=== PATIENT | female | born 1990 | race Caucasian/White ===

== ENCOUNTER 2016-08-17 23:57 | Inpatient (IN) | payer OTHER ==
--- NOTE | ~2016-08-17 | HP ---
Unit #: [id number] #: [id number] Patient: MELODY KEBEDE [id number] [facility] [address] [place] [address] [id number] I MR#: [id number] NAME: MELODY KEBEDE ROOM: P212 Age: 26 Sex: F Admission Date: 08/17/2016 : 1990 Attending Physician: Rona Jasso M.D. Admitting Physician: Rona Jasso M.D. Primary Care Physician: Primary Care Physician No HISTORY AND PHYSICAL HISTORY OF PRESENT ILLNESS Melody is a 26 year old admitted to [address] [place] [address] because of her continued drug use. PAST MEDICAL HISTORY 1. Long history of opioid abuse to include IV heroin. 2. Hepatitis C. 3. Seizure disorder. 4. History of benign brain cyst/tumor. PAST SURGICAL HISTORY Nothing reported. ALLERGIES No known drug allergies. SOCIAL HISTORY Smokes 1 pack per day. Denies alcohol. Admits to a long history of illicit substance abuse to include IV heroin. FAMILY HISTORY Medically noncontributory. REVIEW OF SYSTEMS CONSTITUTIONAL: No fever or chills. HEENT: Denies any sore throat, ear pain or runny nose. CARDIOVASCULAR: Denies chest pain, irregular heart rhythm or palpitations. CHEST: Denies shortness of breath or cough. No hemoptysis. GASTROINTESTINAL: Denies nausea, vomiting, diarrhea or chronic constipation. ENDOCRINE: Denies history of increased thirst or urination. No recent significant weight loss or gain. GENITOURINARY: Denies dysuria, frequency, or hematuria. SKIN: Denies any rashes. HEMATOLOGIC: Denies history of increased bleeding or bruising. MUSCULOSKELETAL: Denies any hot, swollen joints. No generalized muscle pain. NEUROLOGIC: Denies problems with vision or speech. No frequent, severe headaches. No numbness, tingling or weakness in any extremities. Denies loss of bladder or bowel control. CURRENT MEDICATIONS 1. Detox protocol. Unit #: [id number] #: [id number] Patient: MELODY KEBEDE 2. Keppra 500 mg b.i.d. PHYSICAL EXAMINATION GENERAL: Alert, well-nourished, in no apparent distress. VITAL SIGNS: Blood pressure 122/78, heart rate 80, respirations 16, temperature 98.6. WEIGHT: 115. HEIGHT: 5 feet 1 inch. SKIN: Warm and dry without rash or lesion. HEENT: Normocephalic. TMs not viewed. Oral and nasal passages clear. Conjunctivae clear. PERRLA. EOMs intact. NECK: Supple without lymphadenopathy or thyromegaly. HEART: Regular rate and rhythm without murmur. LUNGS: Clear. ABDOMEN: Soft, nontender. : Not done. EXTREMITIES: No evidence of cyanosis, clubbing or edema. Moves all without focal deficit. NEUROLOGICAL: Grossly within normal limits. Cranial Nerves: II: Visual baca are intact. III, IV AND : Extraocular movements are intact. Pupils are equal, round and reactive to light. V: Facial sensation is grossly normal. VII: Facial movements and expression are normal. VIII: Auditory acuity grossly intact. IX, X: Uvula is midline. Phonation is normal. XI: Patient shrugs shoulders and turns head normally. XII: Tongue protrudes in the midline. Sensory and Motor Function: Sensory and motor sensation is grossly normal. Motor: moves all extremities well. Coordination: Gait is normal. Deep Tendon Reflexes: Intact. IMPRESSION Psychiatric admission. RECOMMENDATIONS PSYCHIATRIC: Per psychiatrist. MEDICAL: See no contraindications to participate in facility's activities. MEDICAL PROGNOSIS Good. MEDICAL CONDITION Stable. Dictated by... Charline Aaron PJulietteAJuliette-Jocelin. for Ami Dwyer/tien TD: 08/18/2016 20:44 JOB #: [id number] Unit #: [id number] #: [id number] Patient: MELODY KEBEDE HISTORY AND PHYSICAL Page 1 of 1 X Charline Aaron HISTORY AND PHYSICAL
--- NOTE | ~2016-08-17 | PN ---
Unit #: [id number] #: [id number] Patient: MELODY COLUNGA [id number] [facility] [address] [place] [address] [id number] MR#: [id number] NAME: MELODY COLUNGA ROOM: P212 Age: 26 Sex: F Admission Date: 08/17/2016 : 1990 Attending Physician: Rona Jasso M.D. Admitting Physician: Rona Jasso M.D. Primary Care Physician: Primary Care Physician Yadira AMBRIZ NOTES DATE August 19, 2016 DISCUSSION Ms. Colunga is a 26-year-old white female, with substance abuse and mood disorder, who was seen today and chart was reviewed and the case was discussed with the staff. She was trying to mask her substance abuse issues and rather focus more on her underlying anxiety; however, she has been taking the medications and tolerating them fairly well with no reported side effects. MENTAL STATUS EXAMINATION Young white female, who was casually dressed with fair personal hygiene and appears to be in no acute distress or discomfort. She was awake and alert on interaction with intact orientation. Her mood was anxious and depressed with a congruent affect. Her speech is slow and goal-directed. The patient denies any suicidal or homicidal ideations. Her insight and judgment remain slightly impaired. TREATMENT PLAN 1. We will continue her on her current medications and treatment protocol, and will monitor her response to the medications, and make further adjustments as needed. 2. We will continue to followup. Dictated by... Ami Bauer/aba TD: 08/22/2016 12:09 JOB #: [id number] Unit #: [id number] #: [id number] Patient: MELODY COLUNGA PEARADHA PROGRESS NOTES Page 1 of 1 X Rona Jasso MD PROGRESS NOTE
--- NOTE | ~2016-08-17 | DS ---
Unit #: [id number] #: [id number] [facility]: [facility] [id number] [facility] [address] [place] [address] [id number] I MR#: [id number] NAME: MELODY COLUNGA ROOM: [facility] Age: 26 Sex: F Admission Date: 08/17/2016 : 1990 Discharge Date: 08/20/2016 Attending Physician: Rona Jasso M.D. Primary Care Physician: Primary Care Physician No DISCHARGE SUMMARY IDENTIFYING DATA Ms. Colunga is a 26-year-old white female, who was self-referred to the hospital. DISCHARGE DIAGNOSES Psychiatric: Opioid dependence, moderate and acute withdrawals; opioid-induced mood disorder. Medical: Hypertension and hepatitis C. Stressors: Moderate psychosocial stressors. HISTORY OF PRESENT ILLNESS Please see initial psychiatric evaluation for details. PAST PSYCHIATRIC HISTORY Please see initial psychiatric evaluation for details. PAST MEDICAL HISTORY Please see initial psychiatric evaluation for details. HOSPITAL COURSE The [facility] and was oriented to hospital environment. Routine p.r.n. medications were initiated. She was started back on her home medications and detox protocol was initiated and she was closely monitored. She was taking medications regularly and was tolerating them fairly well and was able to show a fairly decent and therapeutic response and was able to come out of the detox without any complications and was willing to continue treatment on an outpatient basis and as such, it was decided that she will be discharged home and will continue treatment on an outpatient basis. DISCHARGE CONDITION Stable. PROGNOSIS Fair. Dictated by... Rona Jasso M.D. IAA/modl Unit #: [id number] #: [id number] Patient: MELODY COLUNGA TD: 10/04/2016 01:07 JOB #: [id number] DISCHARGE SUMMARY Page 1 of 1 X Rona Jasso MD X DISCHARGE SUMMARY
--- NOTE | ~2016-08-17 | PA ---
Unit #: [id number] #: [id number] Patient: MELODY COLUNGA [id number] [facility] [address] [place] [address] [id number] MR#: [id number] NAME: MELODY COLUNGA ROOM: P211 Age: 26 Sex: F Admission Date: 08/17/2016 : 1990 Date of Assessment: 08/17/2016 Attending Physician: Rona Jasso M.D. Admitting Physician: Rona Jasso M.D. Primary Care Physician: Primary Care Physician No PSYCHIATRIC ASSESSMENT IDENTIFYING DATA Ms. Colunga is a 26-year-old single white female, who is a resident of [place], [place] and was self-referred to the hospital on a voluntary basis. CHIEF COMPLAINT "I'm an IV heroin user." HISTORY OF PRESENT ILLNESS Ms. Colunga is a 26-year-old white female, who was self-referred to the hospital. Upon presentation, she stated she has been using between 0.25 to 0.5 gram of IV heroin on daily basis and also uses this nasally and her last use was 3 days ago and reports increasing depression, anxiety, disturbed sleep, psychomotor retardation, and she reports that she has not been eating and has not been sleeping and has been having feelings of hopelessness and helplessness, but denies any suicidal ideations, intent, or plan. SUBSTANCE ABUSE HISTORY The patient reports history of experimentation and abuse of alcohol, cannabis, opioids, and benzodiazepines, and currently heroin has been her drug of choice, though she reports that she has been using IV heroin on daily basis. PAST PSYCHIATRIC HISTORY The patient has not had any prior inpatient or outpatient psychiatric or chemical dependency treatment. Review of the medical records indicate currently she is not seeing a psychiatrist, and is not taking any psychotropic medications. PAST MEDICAL HISTORY Significant for cyst on the brain, hepatitis C, seizure disorder. ALLERGIES No known medication allergies. PERSONAL AND SOCIAL HISTORY A 26-year-old white female, who reports that she lives at home with her boyfriend and her daughter and has fairly decent social support system. MENTAL STATUS EXAMINATION Young white female, who was casually dressed with fair personal hygiene, appears to be in no acute distress or discomfort. She was awake and alert Unit #: [id number] #: [id number] Patient: MELODY COLUNGA on interaction with intact orientation to time, place, and person. Her mood was anxious and depressed with a congruent affect. Her speech was slow and goal directed. Her thought processes were disorganized with some looseness of associations. She denies any suicidal or homicidal ideations, and also denies any auditory or visual hallucinations. Her insight and judgment remain significantly impaired. DIAGNOSTIC IMPRESSION Psychiatric: Opioid dependence, moderate and acute withdrawals; opioid-induced mood disorder. Medical: Cyst on the brain, hepatitis C, seizure disorder. Stressors: Moderate psychosocial stressors. TREATMENT PLAN 1. The patient has presented with a history of substance abuse and mood disorder, and has been decompensating and will need inpatient hospitalization for detoxification, safety, and stabilization. We will start her on detox protocol. We will closely monitor for any worsening withdrawal symptoms. 2. Supportive therapy was provided to the patient. 3. Safe, structured, and nourishing environment will be reported. ESTIMATED LENGTH OF STAY 4 to 5 days. ABILITY TO HELP SELF Limited. WILLINGNESS TO HELP SELF The patient appears to be willing to help self. STRENGTHS 1. Communicative. 2. Cooperative. PROBLEMS 1. Chronic dysphoric symptoms. 2. Poor social support system. DISCHARGE CRITERIA This will be contingent upon the patient's ability to go through detox without having any significant withdrawal symptoms and her ability to stay safe to herself, particularly after discharge from the hospital. Dictated by... Ami Bauer/alexus TD: 08/18/2016 07:09 JOB #: [id number] Unit #: [id number] #: [id number] Patient: MELODY COLUNGA PSYCHIATRIC ASSESSMENT Page 1 of 1 X Rona Jasso MD PSYCHIATRIC ASSESSMENT
--- NOTE | ~2016-08-17 | PN ---
Unit #: [id number] #: [id number] Patient: MELODY COLUNGA [id number] [facility] [address] [place] [address] [id number] MR#: [id number] NAME: MELODY COLUNGA ROOM: P211 Age: 26 Sex: F Admission Date: 08/17/2016 : 1990 Attending Physician: Rona Jasso M.D. Admitting Physician: Ami Bauer PROGRESS NOTES DATE OF SERVICE: 08/18/2016 SUBJECTIVE Ms. Colunga is a 26-year-old white female with substance abuse and mood disorder, who was seen today and chart was reviewed and the case was discussed with the staff. She has been anxious, withdrawn, depressed, and rather seclusive to herself. Meanwhile, she has been cooperative with the treatment recommendations and has been taking the medications and tolerating them fairly well with no reported side effects. MENTAL STATUS EXAMINATION Young white female, who was casually dressed with fair personal hygiene, appears to be in no acute distress or discomfort. She was awake and alert on interaction with intact orientation. Her mood was anxious and depressed with a congruent affect. She denies any suicidal or homicidal ideation. Her insight and judgment remain slightly impaired. TREATMENT PLAN 1. We will continue her on her current medications and treatment protocol. We will monitor her response to the medications and make further adjustments as needed. 2. We will continue to follow up. Dictated by... Ami Bauer/alexus TD: 08/18/2016 13:07 JOB #: [id number] [facility] PROGRESS NOTES Page 1 of 1 X Rona Jasso MD PROGRESS NOTE
[~2016-08-17 23:57] MED LIST: AMOXICILLIN PO; DICLOFENAC PO; DILANTIN PO; KLONOPIN; KLONOPIN PO
[2016-08-18 10:04] LABS: BASOPHIL# 0.1 X10e3 (0-0.3); BASOPHIL% 0.9 % (0-2.5); EOSINOPHIL# 0.2 X10e3 (0-0.7); EOSINOPHIL% 2.3 % (0.0-7.0); HEMATOCRIT 45.2 % (35.0-45.0); LYMPHOCYTE# 2.6 X10e3 (1.0-3.5); LYMPHOCYTE% 30.1 % (17.0-45.0); MEAN CELL VOLUME 94.1 FL (83-96); MEAN CORPUSCULAR HEMOGLOBIN 31.3 PG (28-34); MEAN CORPUSCULAR HGB CONC 33.3 g/dL (30-36); MEAN PLATELET VOLUME 8.6 FL (6.5-11.5); MONOCYTE% 11.6 % (3.0-12.0); NEUTROPHIL# 4.7 X10e3 (1.5-7.1); NEUTROPHIL% 55.1 % (40-75); PLATELET COUNT 299 X10e3 (140-420); RED CELL DISTRIBUTION WIDTH 13.6 % (11.0-15.5); WHITE BLOOD COUNT 8.6 X10e3 (4.0-10.5)
[2016-08-18 10:32] LABS: THYROID STIMULATING HORMONE 0.53 uIU/ml (0.34-5.60)
[2016-08-18 10:37] LABS: ALBUMIN SERUM 4.5 g/dL (3.5-5.0); BILIRUBIN,TOTAL 0.7 mg/dL (0.2-2.0); BUN/CREATININE RATIO 22.5; CALCIUM SERUM 9.9 mg/dL (8.4-10.2); CREATININE SERUM 0.8 mg/dL (0.6-1.4); GLOM FILT RATE Estimated 101.8 mL/min (>60); POTASSIUM 3.2 mmol/L (3.5-5.1); PROTEIN TOTAL SERUM 7.8 g/dL (6.0-8.3)
[2016-08-18 10:44] LABS: FREE THYROXIN (T4) 0.91 ng/dL (0.58-1.64)
[2016-08-18 10:49] LABS: DIFF IND NO
== END 2016-08-20 14:00 | disposition left against medical advice (07) | DRG 894 ==
LOC: P2S 23:57
PROVIDERS: Psychiatry & Neurology Psychiatry
PROC: HZ2ZZZZ Detoxification Services for Substance Abuse Treatment (ICD-10-PCS; principal; 2016-08-17)
DX: F11.23 Opioid dependence with withdrawal (principal); B19.20 Unspecified viral hepatitis C without hepatic coma; F11.24 Opioid dependence with opioid-induced mood disorder; G93.0 Cerebral cysts; G40.909 Epilepsy, unspecified, not intractable, without status epilepticus; F17.210 Nicotine dependence, cigarettes, uncomplicated
CPT/HCPCS: 80053; 84439; 84443; 84703; 85025; 86592